=== PATIENT | female | born 2000 | race Caucasian/White ===

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

== ENCOUNTER 2018-03-29 14:57 | Emergency (ER) | payer OTHER ==
[2018-03-29 15:12] VITALS: BP 113/68; PULSE 102; TEMP 98.8; BMI 20.2
[2018-03-29] MEDS ORDERED: ACETAMINOPHEN 325 MG TABLET (FP) PO ONE (15:13)
--- NOTE | 2018-03-29 15:13 | PDOC ---
Rapid Medical Evaluation Time Seen by Provider: 03/29/18 15:09 Medical Evaluation: Allergies Allergy/AdvReac Type Severity Reaction Status Date / Time No Known Allergies Allergy Verified 12/20/17 12:59 03/29/18 15:09 Patient had a brief in-person assessment of this patient The patient presents with a chief complaint of: headache. Patient reports tripped and fell back hitting back of head on shelf. Reports no loc, no nausea or vomiting. States did not hit the floor. Denies blurred vision at present Pertinent physical findings are: NAD neck supple non tender mid cervical spine tenderness no lumps felt on scalp I have ordered the following: urine and analgesia ordered This patient will proceed to the ED for further evaluation.
[2018-03-29] MEDS ORDERED: ACETAMINOPHEN 325 MG TABLET (FP) ONE (15:43)
--- NOTE | 2018-03-29 15:53 | PDOC ---
History of Present Illness - General Chief Complaint: Injury Stated Complaint: FELL/BUMPT HEAD/HEADACHE Time Seen by Provider: 03/29/18 15:09 History Source: Patient Exam Limitations: No Limitations - History of Present Illness Initial Comments: 03/29/18 15:50 Patient states stumbled last night following and while trying to catch herself fell backwards striking her occiput on the edge of a shelf. Patient states was dazed at the time, however there was no LOC, no drainage from nose or ears, no other distracting injury. Since that time is felt mild dizziness but no vomiting or nausea, no significant hematoma or mass to neck or head, no numbness or tingling to hands or feet, and feels mental status has been within normal limits although felt tired. Is 5 months , therefore hesitant to take any medications for pain relief. Occurred: reports: yesterday Pain Location: reports: head Modifying Factors: improves with: None Loss of Consciousness: no loss of consciousness Associated Symptoms (Fall): dizziness, headache Past History - Travel Traveled outside of the country in the last 30 days: No Close contact w/someone who was outside of country & ill: No - Past Medical History Allergies/Adverse Reactions: Allergies Allergy/AdvReac Type Severity Reaction Status Date / Time No Known Allergies Allergy Verified 03/29/18 15:10 Home Medications: Ambulatory Orders Nitrofurantoin Monohyd/M-Cryst [Macrobid -] 100 mg PO BID #14 capsule 12/20/17 Anemia: Yes COPD: No - Reproductive History (#): 1 - Immunization History Immunization Up to Date: Yes - Suicide/Smoking/Psychosocial Hx Smoking History: Never smoked Review of Systems - Review of Systems Able to Perform ROS?: Yes Is the patient limited Tristanian proficient: Yes Constitutional: Yes: See HPI. No: Symptoms Reported, Chills, Fever HEENTM: Yes: See HPI. No: Symptoms Reported, Eye Pain, Blurred Vision, Tearing Respiratory: No: Symptoms reported Cardiac (ROS): No: Symptoms Reported Musculoskeletal: Yes: See HPI, Muscle Pain. No: Symptoms Reported Integumentary: Yes: See HPI. No: Symptoms Reported, Bruising Neurological: Yes: Symptoms reported, See HPI, Headache. No: Numbness, Paresthesia, Pre-Existing Deficit Psychiatric: No: Anxiety All Other Systems: Reviewed and Negative *Physical Exam - Vital Signs Last Vital Signs Temp Pulse Resp BP Pulse Ox 98.8 F 102 H 18 113/68 98 03/29/18 15:10 03/29/18 15:10 03/29/18 15:10 03/29/18 15:10 03/29/18 15:10 - Physical Exam General Appearance: Yes: Appropriately Dressed HEENT: positive: Normal ENT Inspection, TMs Normal (no hemotympanum, no drainage from nose or ears), Pharynx Normal, Other (no mass, hematoma, crepitus or step-offs to occiput. No obvious laceration or contusion noted to occiput at site of impact.). negative: Rhinorrhea, Sinus Tenderness Neck: positive: Supple (neck is supple without C-spine tenderness crepitus, has full range of motion with no muscle tenderness or spasm.). negative: Tender Respiratory/Chest: positive: Lungs Clear, Normal Breath Sounds Musculoskeletal: positive: Normal Inspection. negative: Muscle Spasm, Vertebral Tenderness Extremity: positive: Normal Capillary Refill, Normal Inspection, Normal Range of Motion Integumentary: positive: Normal Color, Dry, Warm Neurologic: positive: cook fry II-XII NML intact, Fully Oriented, Alert, Normal Mood/ Affect, Normal Response, Motor Strength / ED Treatment Course - ADDITIONAL ORDERS Additional order review: Laboratory Results 03/29/18 15:11 Urine HCG, Qual Positive - Medications Given in the ED: ED Medications Discontinued Medications Generic Name Dose Route Start Last Admin Trade Name Ervinq PRN Reason Stop Dose Admin Acetaminophen 650 mg 03/29/18 15:13 03/29/18 15:45 Tylenol - PO 03/29/18 15:14 650 mg ONCE ONE Administration Progress Note - Progress Note Progress Note: 7 with mild scalp contusion, mild concussive syndrome. Patient is therefore will use Tylenol only for mild pain relief and reviewed exercise limitations, and activity limitation until symptoms resolve *DC/Admit/Observation/Transfer Diagnosis at time of Disposition: Superficial injury of head Qualifiers: Encounter type: initial encounter Qualified Code(s): S00.90XA - Unspecified superficial injury of unspecified part of head, initial encounter - Referrals - Patient Instructions Printed Discharge Instructions: DI for Closed Head Injury Additional Instructions: Rest, avoid strenuous activity or exercise for the next 24-48 hours May use ice on contusions as needed. May use Tylenol for pain relief Watch and seek evaluation for changes in behavior including crankiness, inconsolability, quietness/ sleepiness that is inappropriate, tiredness that is inappropriate, watch for worsening and changes of behavior. Seek immediate evaluation/return to emergency department for vomiting, mental status changes, pain that's out of proportion , bloody drainage from ears or nose. Followup with private physician as needed in one to 2 days for reevaluation - Post Discharge Activity Forms/Work/School Notes: Back to Work
== END 2018-03-29 15:54 | disposition home or self-care (01) ==
LOC: JERFT 14:57
DX: S09.90XA Unspecified injury of head, initial encounter (principal); O26.892 Other specified pregnancy related conditions, second trimester; Z3A.00 Weeks of gestation of pregnancy not specified
CPT/HCPCS: 84703; 99281-25

== ENCOUNTER 2018-07-07 22:25 | Emergency (ER) | payer OTHER ==
[2018-07-07 22:31] VITALS: BMI 23.8
[2018-07-07] MEDS ORDERED: ACETAMINOPHEN 325 MG TABLET (FP) PO ONE (23:29)
--- NOTE | 2018-07-07 23:42 | PDOC ---
History of Present Illness - General Chief Complaint: Chest Pain Stated Complaint: 34 WEEKS/CHEST PAIN Time Seen by Provider: 07/07/18 23:11 History Source: Patient Exam Limitations: No Limitations - History of Present Illness Initial Comments: 07/07/18 23:28 17YOF who is about 34 weeks , who p/w left upper chest pain for the past hour and 15 minutes, mild but stabbing and radiating straight to her back, only when she takes a deep breath. Also feels like her left arm is a bit weaker than normal. She has not had this pain in the past, denies any diaphoresis, SOB (other than 2/2 exacerbated pain with deep breath), dysuria, vaginal bleeding/discharge, headache, neck pain, vision change, palpitations, lightheadedness, dizziness, leg pain/swelling, h/o blood clots (personal or family), prolonged immobilization, hemoptysis, etc. Did not take any medications for these symptoms. Past History - Past Medical History Allergies/Adverse Reactions: Allergies Allergy/AdvReac Type Severity Reaction Status Date / Time No Known Allergies Allergy Verified 07/07/18 22:31 Home Medications: Ambulatory Orders Cephalexin [Keflex Suspension] 500 mg PO BID #100 ml 07/08/18 118/Iron/Folate 6/Dha [[facility] Softgel] 1 each PO DAILY 07/08/18 Anemia: Yes COPD: No - Reproductive History (#): 1 - Immunization History Immunization Up to Date: Yes - Suicide/Smoking/Psychosocial Hx Smoking History: Never smoked Have you smoked in the past 12 months: No Information on smoking cessation initiated: No Hx Alcohol Use: No Drug/Substance Use Hx: No Review of Systems - Review of Systems Able to Perform ROS?: Yes Comments:: 07/07/18 23:30 GEN: no fever, chills, malaise, generalized weakness, or weight change HEENT: no ear pain, sore throat, vision change, or eye pain CV: chest pain, no palpitations, lightheadedness, syncope, or edema RESP: no cough, wheezing, or SOB GI: no abdominal pain, nausea, vomiting, diarrhea, constipation, or white/black/ bloody stool : no dysuria, hematuria, incontinence, retention, bleeding, or discharge MSK: no neck/back pain, muscle weakness/pain, or joint swelling/pain NEURO: LUE mild weakness, otherwise no headache, seizure, vertigo, numbness, tingling, or focal weakness PSYCH: no substance use, no behavior change SKIN: no jaundice, no rash ROS otherwise negative except as noted in HPI *Physical Exam - Vital Signs Last Vital Signs Temp Pulse Resp BP Pulse Ox 97.5 F L 76 18 131/80 99 07/08/18 02:08 07/08/18 02:08 07/08/18 02:08 07/08/18 02:08 07/07/18 22:29 07/07/18 23:40 GENERAL: very well-appearing young adult female, A/Ox4, no distress, answers questions appropriately HEENT: PERRLA, EOMI, moist mucous membranes NECK/BACK: no midline ttp, no spinal stepoff or deformity, no hematoma, full ROM , neck supple CHEST WALL: mildly tender to compression of LUCW which reproduces chief complaint exactly CARDIOVASCULAR: regular rate/rhythm, normal S1S2, no MGR, strong peripheral pulses, capillary refill <2 seconds, extremities wwp, no edema LUNGS/RESPIRATORY: no respiratory distress, CTAB GI/ABDOMEN: visibly gravid, symmetric [id number], normoactive BS, soft, no ttp , no midline pulsatile masses : no CVA tenderness EXTREMITIES: no muscle atrophy, no acute deformity, no edema, no calf tenderness or swelling SKIN: warm and dry, no pallor, no jaundice, no rash, no bruising, no skin breakdown, no cuts, no lesions NEUROLOGICAL: GCS 15, CN II-XII grossly intact, 5/5 strength proximally and distally, no facial droop Heart Score/ECG Review - History History: Slightly suspicious - Electrocardiogram EKG: Normal - Age Age: </= 45 - Risk Factors Based on the list above the patient has:: No risk factors known - Troponin Troponin: </= normal limit - Score Heart Score - Total: 0 #1 07/07/18 22:36 Sinus rhythm, sinus arrhythmia, rate 85, normal axis and intervals, no ischemic ST-T changes Moderate Sedation - Procedure Monitoring Vital Signs: Procedure Monitoring Vital Signs Temperature 97.5 F L 07/08/18 02:08 Pulse Rate 76 07/08/18 02:08 Respiratory Rate 18 07/08/18 02:08 Blood Pressure 131/80 07/08/18 02:08 O2 Sat by Pulse Oximetry (%) 99 07/07/18 22:29 ED Treatment Course - LABORATORY CBC & Chemistry Diagram: 07/08/18 00:05 07/08/18 00:05 - ADDITIONAL ORDERS Additional order review: Laboratory Results 07/08/18 07/08/18 07/08/18 00:05 00:05 00:05 Sodium 136 Potassium 4.0 Chloride 105 Carbon Dioxide 25 Anion Gap 5 L BUN 8 Creatinine 0.6 Creat Clearance w eGFR > 60 Random Glucose 102 Calcium 7.9 L Total Bilirubin 0.2 AST 21 ALT 12 L Alkaline Phosphatase 260 H Troponin I < 0.02 Total Protein 6.4 Albumin 2.7 L Urine Color Ltyellow Urine Appearance Clear Urine pH 7.0 Ur Specific [place] 1.012 Urine Protein Negative Urine Glucose (UA) Negative Urine Ketones Negative Urine Blood Negative Urine Nitrite Negative Urine Bilirubin Negative Urine Urobilinogen Negative Ur Leukocyte Esterase 3+ H Urine WBC (Auto) 18 Urine RBC (Auto) 1 Ur Epithelial Cells Few Urine Bacteria Rare Urine Mucus Rare 07/08/18 00:05 RBC 3.55 L MCV 94.2 MCHC 36.4 H RDW 13.8 D MPV 8.2 D Neutrophils % 64.4 Lymphocytes % 26.6 D Monocytes % 7.7 Eosinophils % 0.9 Basophils % 0.4 - Medications Given in the ED: ED Medications Discontinued Medications Generic Name Dose Route Start Last Admin Trade Name Freq PRN Reason Stop Dose Admin Acetaminophen 650 mg 07/07/18 23:29 07/08/18 00:27 Tylenol - PO 07/07/18 23:30 Not Given ONCE ONE Cephalexin 500 mg 07/08/18 01:11 07/08/18 01:41 Keflex Oral Suspension - PO 07/08/18 01:12 500 mg ONCE ONE Administration Cephalexin HCl 500 mg 07/08/18 00:51 07/08/18 01:22 Keflex - PO 07/08/18 00:52 Not Given ONCE ONE Dextrose/Lactated Ringer's 1,000 mls @ 500 mls/hr 07/08/18 03:00 07/08/18 03: 35 D5-Lr - IV 07/08/18 04:59 500 mls/hr ONCE ONE Administration Medical Decision Making - Medical Decision Making 07/07/18 23:43 34 wks adult female Pt p/w chest pain. Initial Vital Signs Temp Pulse Resp BP Pulse Ox 98.2 F 83 20 127/72 99 07/07/18 22:29 07/07/18 22:29 07/07/18 22:29 07/07/18 22:29 07/07/18 22:29 Exam: As noted in Physical Exam section. DDX IBNLT: most likely precordial catch, costochondritis, muscle strain/sprain; less likely any of the following: ACS, pericarditis, PE (PE considered given patient's although this is unlikely given normal vitals, lack of leg pain/swelling, lack of additional risk factors). Very unlikely any other more serious etiology e.g. PTX, PNA/bronchitis, pleurisy, pleuritis, MVP, panic/ anxiety, etc. W/U ordered: CBCD CMP Troponin UA UCx EKG TX ordered: Tylenol PO EKG: Reviewed; results as noted in ECG Review section. Laboratory Tests 07/08/18 07/08/18 07/08/18 00:05 00:05 00:05 WBC 6.5 RBC 3.55 L Hgb 12.2 Hct 33.4 MCV 94.2 MCH 34.3 H MCHC 36.4 H RDW 13.8 D Plt Count 237 MPV 8.2 D Absolute Neuts (auto) 4.2 Neutrophils % 64.4 Lymphocytes % 26.6 D Monocytes % 7.7 Eosinophils % 0.9 Basophils % 0.4 Nucleated RBC % 0 Sodium 136 Potassium 4.0 Chloride 105 Carbon Dioxide 25 Anion Gap 5 L BUN 8 Creatinine 0.6 Creat Clearance w eGFR > 60 Random Glucose 102 Calcium 7.9 L Total Bilirubin 0.2 AST 21 ALT 12 L Alkaline Phosphatase 260 H Troponin I Total Protein 6.4 Albumin 2.7 L Urine Color Ltyellow Urine Appearance Clear Urine pH 7.0 Ur Specific [place] 1.012 Urine Protein Negative Urine Glucose (UA) Negative Urine Ketones Negative Urine Blood Negative Urine Nitrite Negative Urine Bilirubin Negative Urine Urobilinogen Negative Ur Leukocyte Esterase 3+ H Urine WBC (Auto) 18 Urine RBC (Auto) 1 Ur Epithelial Cells Few Urine Bacteria Rare Urine Mucus Rare 07/08/18 00:05 WBC RBC Hgb Hct MCV MCH MCHC RDW Plt Count MPV Absolute Neuts (auto) Neutrophils % Lymphocytes % Monocytes % Eosinophils % Basophils % Nucleated RBC % Sodium Potassium Chloride Carbon Dioxide Anion Gap BUN Creatinine Creat Clearance w eGFR Random Glucose Calcium Total Bilirubin AST ALT Alkaline Phosphatase Troponin I < 0.02 Total Protein Albumin Urine Color Urine Appearance Urine pH Ur Specific [place] Urine Protein Urine Glucose (UA) Urine Ketones Urine Blood Urine Nitrite Urine Bilirubin Urine Urobilinogen Ur Leukocyte Esterase Urine WBC (Auto) Urine RBC (Auto) Ur Epithelial Cells Urine Bacteria Urine Mucus Reassessment: Patient states minimal/mild pain. States comfortable being discharged with plan to go to L&D for monitoring. Repeat exam benign. Vital Signs Temperature 97.5 F L 07/08/18 02:08 Pulse Rate 76 07/08/18 02:08 Respiratory Rate 18 07/08/18 02:08 Blood Pressure 131/80 07/08/18 02:08 O2 Sat by Pulse Oximetry (%) 99 07/07/18 22:29 DISCHARGE Repeat cardiac enzymes are negative. No new abnormal rhythms have been observed on the registered nurse cardiac. On last reassessment VS are stable, Pts pain is resolved, and exam is benign. The Pts HEART score indicates they are low risk and do not require admission currently. The Pt is appropriate for discharge with close outpatient follow up. They are comfortable with this plan and will follow up with their primary care provider in 1-3 days. Specific return precautions are discussed and they will come back to the ER if necessary. *DC/Admit/Observation/Transfer Diagnosis at time of Disposition: Chest pain Qualifiers: Chest pain type: chest pain on breathing Qualified Code(s): R07.1 - Chest pain on breathing UTI (urinary tract infection) Qualifiers: Urinary tract infection type: acute cystitis Hematuria presence: without hematuria Qualified Code(s): N30.00 - Acute cystitis without hematuria Qualifiers: Weeks of gestation: 34 weeks Qualified Code(s): Z3A.34 - 34 weeks gestation of - Discharge Dispostion Disposition: HOME Condition at time of disposition: Stable Decision to Admit order: No - Prescriptions Prescriptions: Cephalexin [Keflex Suspension] 500 mg PO BID #100 ml - Referrals Referrals: Gricel Coffey MD [Staff Physician] - - Patient Instructions Printed Discharge Instructions: Common Discomforts and Bodily Changes During , Managing Symptoms of , DI for Urinary Tract Infection (UTI) , DI for -- Discomforts and Remedies, DI for Chest Pain Additional Instructions: You were seen in the ER for chest pain. We did lab work on your blood and urine , and an electrocardiogram. You have a bladder infection, and we gave you a dose of antibiotic here. After our assessment, we do not believe you are having a medical emergency at this time, and we believe you are safe to go home. Take over the counter pain medications for your pain, as instructed on the medication label. Please follow up with your primary care provider in 1-3 days. Call their clinic as soon as possible, tell them you were seen in the ER, and tell them you need an appointment. If you have any new or worsening symptoms, especially worsening chest pain, jaw pain, shoulder/arm pain, shortness of breath, sweats, nausea, loss of consciousness, palpitations, or other symptoms, please come back to the ER at any time (24 hours a day). If you are having severe or life threatening symptoms, or symptoms that make it unsafe to drive or have someone drive you, please call 911. Please go up to L&D for monitoring. 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 Take the whole prescription course as directed on the label. DISCHARGE HOME. RESUME NORMAL ACTIVITY. EAT REGULARLY AND INCREASE YOUR WATER INTAKE. FOLLOW UP ON THURSDAY SCHEDULED IN THE OFFICE. TAKE ALL THE MEDICATION THE ED DOCTOR ORDERED. RETURN TO THE ED IF CHEST PAIN RETURNS. RETURN TO LABOR AND DELIVERY IF YOU START TO HAVE REGULAR CONTRACTIONS YOU BREAK YOUR WATER YOU HAVE ANY VAGINAL BLEEDING YOU DO NOT FEEL THE BABY MOVING - Post Discharge Activity
--- NOTE | 2018-07-07 23:50 | PDOC ---
Attending Attestation - HPI HPI: 07/07/18 23:51 The patient is a 17 year old female ( 34 weeks ) with no significant past medical history who presents to the emergency department with chest pain since about an hour ago. The patient states that she was at home when she felt an onset of her left sided upper chest pain. She states that her chest pain is worsened with deep breaths and radiates down her left arm which feels like a discomfort. She reports some associated nausea. The patient denies experiencing anything like this in the past. She denies any shortness of breath , numbness or tingling sensation. The patient reports that this is her first and denies any complications thus far. She states that she has had regular OB care. She denies any vaginal bleeding, discharge or urinary symptoms. She denies any significant extremity swelling. The patient denies any smoking alcohol intake or drug use. The patient denies any other complaints. She denies any fever, chills, vomiting, diarrhea or constipation she denies any other complaints. Documentation prepared by Dyan Ryder, acting as medical collections specialist for Damien Thompson MD. <Dyan Ryder - Last Filed: 07/07/18 23:51> - Resident Resident Name: Sidra Girard - ED Attending Attestation I have performed the following: I have examined & evaluated the patient, The case was reviewed & discussed with the resident, I agree w/resident's findings & plan, Exceptions are as noted - Physicial Exam PE: 07/08/18 02:07 Agree with exam as documented by resident Well appearing, NAD, AOx3, normal wob +ttp over chest wall, no rash, swelling, erythema LCTAB - Medical Decision Making 07/08/18 02:07 17F 34w preg here with chest pain, consider msk px, less likely acs, pe, pna f/u cp w/u if clear transfer to L&D <Damien Thompson - Last Filed: 07/08/18 02:08>
[2018-07-07] MEDS ORDERED: ACETAMINOPHEN 325 MG TABLET (FP) ONE (23:53)
[2018-07-08 00:16] LABS: BASO % 0.4 % (0-2.0); EOS % 0.9 % (0-4.5); HEMATOCRIT 33.4 % (32.4-45.2); HEMOGLOBIN 12.2 GM/dL (10.7-15.3); LYMPH % 26.6 % (8-40); MCH 34.3 pg (25.7-33.7); MCHC 36.4 g/dl (32.0-36.0); MEAN CELL VOLUME 94.2 fl (80-96); MEAN PLT VOLUME 8.2 fl (7.5-11.1); MONO % 7.7 % (3.8-10.2); NEUT % 64.4 % (42.8-82.8); PLATELET COUNT 237 K/MM3 (134-434); RBC 3.55 M/mm3 (3.60-5.2); RDW 13.8 % (11.6-15.6); WHITE BLOOD COUNT 6.5 K/mm3 (4.0-10.0)
[2018-07-08 00:18] LABS: URINE APPEARANCE CLEAR; URINE BILIRUBIN NEGATIVE (<2.0 mg/dL); URINE COLOR LTYELLOW; URINE GLUCOSE (UA) NEGATIVE (NEGATIVE); URINE KETONE NEGATIVE (NEGATIVE); URINE LEUK ESTERASE 3+ (NEGATIVE); URINE NITRITE NEGATIVE (NEGATIVE); URINE PROTEIN NEGATIVE (NEGATIVE); URINE UROBILINOGEN NEGATIVE mg/dL (0.2-1.0)
[2018-07-08 00:22] LABS: EPI CELLS FEW /HPF (FEW); URINE BACTERIA RARE /hpf (NONE SEEN); URINE MUCUS RARE
[2018-07-08 00:45] LABS: ALBUMIN 2.7 g/dl (3.4-5.0); ALK PHOS 260 U/L (45-117); ANION GAP 5 MMOL/L (8-16); BILIRUBIN,TOTAL 0.2 mg/dL (0.2-1); BLOOD UREA NITROGEN 8 mg/dL (7-18); CALCIUM 7.9 mg/dL (8.5-10.1); CHLORIDE 105 mmol/L (98-107); CO2 25 mmol/L (21-32); CREATININE 0.6 mg/dL (0.55-1.3); GLUCOSE,RANDOM 102 mg/dL (74-106); SGOT/AST 21 U/L (15-37); SGPT/ALT 12 U/L (13-61); SODIUM 136 mmol/L (136-145); TOT PROT 6.4 g/dl (6.4-8.2)
[2018-07-08] MEDS ORDERED: CEPHALEXIN MONOHYDRATE 500 MG CAPSULE (UD) PO ONE (00:51)
[2018-07-08] MEDS ORDERED: CEPHALEXIN MONOHYDRATE 500 MG CAPSULE (UD) ONE (01:04)
[2018-07-08] MEDS ORDERED: CEPHALEXIN MONOHYDRATE 250 MG CAPSULE (FP) ONE (01:07)
[2018-07-08] MEDS ORDERED: CEPHALEXIN 250 MG/5 ML ORAL SUSPENSION PO ONE (01:11)
[2018-07-08 02:15] VITALS: BP 131/80; PULSE 76; TEMP 97.5
[2018-07-08] MEDS ORDERED: DEXTROSE 5%-LACTATED RINGERS 1,000 ML IV ONE (03:00)
--- NOTE | 2018-07-08 12:11 | EKG ---
Test Reason : Blood Pressure : / mmHG Vent. Rate : 085 BPM Atrial Rate : 085 BPM P-R Int : 130 ms QRS Dur : 076 ms QT Int : 380 ms P-R-T Axes : 055 059 046 degrees QTc Int : 452 ms NORMAL SINUS RHYTHM WITH SINUS ARRHYTHMIA NORMAL ECG NO PREVIOUS ECGS AVAILABLE Confirmed by AMY SPEARS, JESUS ([id number]) on 07/08/2018 12:11:23 PM Referred By: Confirmed By:JESUS REYES MD
== END 2018-07-08 05:50 | disposition home or self-care (01) ==
LOC: JER 22:25
PROC: 3E0337Z Introduction of Electrolytic and Water Balance Substance into Peripheral Vein, Percutaneous Approach (ICD-10-PCS; principal; 2018-07-07)
DX: O26.891 Other specified pregnancy related conditions, first trimester (principal); O23.13 Infections of bladder in pregnancy, third trimester; N30.90 Cystitis, unspecified without hematuria; O99.89 Other specified diseases and conditions complicating pregnancy, childbirth and the puerperium; R07.1 Chest pain on breathing; Z3A.34 34 weeks gestation of pregnancy
CPT/HCPCS: 36415; 80053; 81003; 81015; 84484; 85025; 87086; 93005; 93010; 99282-25

== ENCOUNTER 2018-08-06 17:39 | Inpatient (IN) | payer OTHER ==
[2018-08-06 18:14] VITALS: BMI 25.2
[2018-08-06] MEDS ORDERED: DEXTROSE 5%-LACTATED RINGERS 1,000 ML IV SCH (18:15)
[2018-08-06] MEDS ORDERED: DINOPROSTONE 10 MG VAGINAL SUPPOSITORY VG ONE (19:30)
--- NOTE | 2018-08-06 19:37 | PN ---
Progress Note (short form) - Note Progress Note: cx 1 cm 50 vx -3 mr, nitrazine positive , fhr cat 1 , cervidil discussed , risks explained,cervidil inserted
[2018-08-06 20:41] LABS: BASO % 0.3 % (0-2.0); EOS % 0.3 % (0-4.5); HEMATOCRIT 35.3 % (32.4-45.2); HEMOGLOBIN 12.6 GM/dL (10.7-15.3); LYMPH % 19.4 % (8-40); MCH 34.3 pg (25.7-33.7); MCHC 35.6 g/dl (32.0-36.0); MEAN CELL VOLUME 96.3 fl (80-96); MONO % 5.8 % (3.8-10.2); NEUT % 74.2 % (42.8-82.8); PLATELET COUNT 213 K/MM3 (134-434); RBC 3.66 M/mm3 (3.60-5.2); RDW 14.1 % (11.6-15.6); WHITE BLOOD COUNT 8.7 K/mm3 (4.0-10.0)
[2018-08-06] MEDS ORDERED: AMPICILLIN SODIUM 2 GM VIAL ONE (20:59)
[2018-08-06] MEDS ORDERED: AMPICILLIN - 2 GM in SODIUM CHLORIDE 100 ML IVPB ONE (21:00)
[2018-08-06 21:01] LABS: ANION GAP 9 MMOL/L (8-16); BLOOD UREA NITROGEN 11 mg/dL (7-18); CALCIUM 7.9 mg/dL (8.5-10.1); CHLORIDE 108 mmol/L (98-107); CO2 22 mmol/L (21-32); CREATININE 0.6 mg/dL (0.55-1.3); GLUCOSE,RANDOM 86 mg/dL (74-106); POTASSIUM 3.9 mmol/L (3.5-5.1); SODIUM 139 mmol/L (136-145)
[2018-08-06 21:03] LABS: INR 0.96 (0.83-1.09); PROTHROMBIN TIME (PATIENT) 11.3 SEC (9.7-13.0)
[2018-08-06] MEDS ORDERED: PROMETHAZINE HCL 25 MG/1 ML VIAL IVPUSH ONE (21:11)
[2018-08-06] MEDS ORDERED: BUTORPHANOL TARTRATE 1 MG/ML VIAL IVPUSH ONE (21:11)
--- NOTE | 2018-08-06 21:20 | HP ---
Past Medical History - Primary Care Physician PCP:: Justin Valdez - Admission Chief Complaint: 39.6 weeks, prom History of Present Illness: 18 yo f g 2 p0 010, 39.6 weeks, c/o leakage clear fluid sine 3 am today on and off , mild contraction,since this afternoon , no fever, no bleeding , cx 1 cm 50 vx -3 mr, nitrazine positive , fhr cat 1, irregular contraction History Source: Patient Limitations to Obtaining History: No Limitations - Past Medical History ...: 2 ...Para: 0 ...Term: 0 ...: 0 ...Spon : 1 ...Induced : 0 ...Multiple Gestation: 0 ...LMP: 10/31/17 ... Weeks Gestation by Dates: 39.6 ...EDC by Dates: 08/07/18 ...EDC by Sono: 08/16/18 - Past Surgical History Hx Myomectomy: No Hx Transabdominal Cerclage: No - Smoking History Smoking history: Never smoked Have you smoked in the past 12 months: No - Alcohol/Substance Use Hx Alcohol Use: No - Social History History of Recent Travel: No Home Medications - Allergies Allergies/Adverse Reactions: Allergies Allergy/AdvReac Type Severity Reaction Status Date / Time No Known Allergies Allergy Verified 08/06/18 17:58 - Home Medications Home Medications: Ambulatory Orders Ferrous Sulfate [Feosol] 325 mg PO DAILY 08/06/18 Vitamins (Sjr) - 1 tab PO DAILY 08/06/18 Review of Systems - Review of Systems Constitutional: reports: No Symptoms Eyes: reports: No Symptoms HENT: reports: No Symptoms Neck: reports: No Symptoms Cardiovascular: reports: No Symptoms Respiratory: reports: No Symptoms Gastrointestinal: reports: No Symptoms Genitourinary: reports: No Symptoms Breasts: reports: No Symptoms Reported Musculoskeletal: reports: No Symptoms Integumentary: reports: No Symptoms Neurological: reports: No Symptoms Endocrine: reports: No Symptoms Hematology/Lymphatic: reports: No Symptoms Psychiatric: reports: No Symptoms Physical Exam - Maternity Vital Signs: Vital Signs Temperature 98.3 F 08/06/18 18:16 Pulse Rate 99 H 08/06/18 18:16 Respiratory Rate 20 08/06/18 18:16 Blood Pressure 138/82 08/06/18 18:16 O2 Sat by Pulse Oximetry (%) Constitutional: Yes: Well Nourished, No Distress, Calm Eyes: Yes: WNL, Conjunctiva Clear, EOM Intact HENT: Yes: WNL, Atraumatic, Normocephalic Neck: Yes: WNL, Supple, Trachea Midline Cardiovascular: Yes: WNL, Regular Rate and Rhythm Breast(s): Yes: WNL - Abdominal Exam/OB Fundal Height: 40 Number of Fetuses: Single Presentation: Vertex Regularity: Irregular Intensity: Unaware Monitor Mode: External Heart Rate Location: [facility] Category: I Accelerations: Uniform Decelerations: None - Vaginal Exam/OB Vaginal Bleediing: No Speculum Exam: Yes Dilatation (cm): 1 cm Effacement (%): 50 Amniotic Membrane Status: Ruptured Nitrazine Test: Positive Amniotic Fluid: Yes: Clear Presentation: Vertex/Position Station: -3 - Physical Exam Musculoskeletal: Yes: WNL Extremities: Yes: WNL Edema: LLE: Trace, RLE: Trace Deep Tendon Reflex Grade: Normal +2 - Labs Lab Results: CBC, BMP 08/06/18 19:30 08/06/18 19:30 Hemorrhage Risk Assessment - Risk Factors Medium Risk Factors: Yes: None High Risk Factors: Yes: None Risk Score: 1 Risk Level: Medium Risk Problem List - Problems (1) with 39 completed weeks gestation Code(s): Z3A.39 - 39 WEEKS GESTATION OF (2) PROM (premature rupture of membranes) Code(s): O42.90 - SHEMAR ROM, 7TH0 BETW RUPT & ONST LABR, UNSP WEEKS OF GEST Qualifiers: PROM onset of labor timing: onset of labor within 24 hours of rupture PROM gestational age: -third trimester Qualified Code(s): O42.013 - premature rupture of membranes, onset of labor within 24 hours of rupture, third trimester Assessment/Plan admit , gbs negative cervidil vs expectant management discussed , agreed to have cervidil risks explained FHM iv antibiotic for prolonged PROM pain management
[2018-08-07] MEDS ORDERED: AMPICILLIN SODIUM 1 GM VIAL ONE ×2 (00:46→00:52)
[2018-08-07] MEDS: AMPICILLIN - 1 GM in SODIUM CHLORIDE 100 ML IVPB SCH ×5 (01:00→20:46)
[2018-08-07] MEDS ORDERED: ONDANSETRON 4 MG/2 ML VIAL IVPB ONE (01:00)
[2018-08-07] MEDS ORDERED: ONDANSETRON 4 MG/2 ML VIAL ONE (01:07)
[2018-08-07] MEDS ORDERED: PROMETHAZINE HCL 25 MG/1 ML VIAL ONE (01:37)
[2018-08-07] MEDS ORDERED: BUTORPHANOL TARTRATE 1 MG/ML VIAL ONE ×2 (01:37)
[2018-08-07] MEDS ORDERED: OXYTOCIN 20 UNITS in 0.9% NS 20 UNIT/1,000 ML INFUS.BAG IV ONE ×3 (03:11→13:53)
[2018-08-07] MEDS ORDERED: LIDOCAINE HCL 1% PRESERVATIVE FREE - 30ML VIAL ONE (03:12)
[2018-08-07] MEDS ORDERED: BENZOCAINE 28 GM HEMORRHOIDAL OINTMENT TP PRN (03:54)
[2018-08-07] MEDS ORDERED: BISACODYL 10 MG SUPP.RECT RC PRN (03:54)
[2018-08-07] MEDS ORDERED: ACETAMINOPHEN 325 MG TABLET (FP) PO PRN (03:54)
[2018-08-07] MEDS ORDERED: METHYLERGONOVINE MALEATE 0.2 MG/1 ML AMP IM PRN (03:54)
[2018-08-07] MEDS ORDERED: WITCH HAZEL 50% (TUCKS) 40 PAD/JAR PAD TP PRN (03:54)
[2018-08-07] MEDS ORDERED: BENZOCAINE 20% 57 GM BOTTLE TP PRN (03:54)
[2018-08-07] MEDS ORDERED: IBUPROFEN 600 MG TABLET (FP) PO PRN (03:54)
--- NOTE | 2018-08-07 03:54 | PN ---
Progress Note (short form) - Note Progress Note: cx full 100 vx 3+,pushing, fhr cat 1 Problem List - Problems (1) with 39 completed weeks gestation Code(s): Z3A.39 - 39 WEEKS GESTATION OF (2) PROM (premature rupture of membranes) Code(s): O42.90 - SHEMAR ROM, 7TH0 BETW RUPT & ONST LABR, UNSP WEEKS OF GEST Qualifiers: PROM onset of labor timing: onset of labor within 24 hours of rupture PROM gestational age: -third trimester Qualified Code(s): O42.013 - premature rupture of membranes, onset of labor within 24 hours of rupture, third trimester
[2018-08-07] MEDS ORDERED: OXYTOCIN 20 UNITS in 0.9% NS 20 UNIT/1,000 ML INFUS.BAG IV SCH (04:00)
[2018-08-07] MEDS ORDERED: D5W-LR W/ 20 UNITS OXYTOCIN 1,000 ML IV SCH (04:00)
[2018-08-07] MEDS ORDERED: TUBERCULIN PPD 5 TU/0.1ML SYRINGE (IN PATIENT USE ONLY) ID ONE (09:30)
[2018-08-07] MEDS: FERROUS SO4 325 MG TABLET (FP) PO SCH ×2 (10:00→22:26)
[2018-08-07] MEDS: PRENATAL VITAMINS W/ FOLIC ACID TABLET (FP) PO SCH (10:00)
[2018-08-08 08:14] LABS: BASO % 0.3 % (0-2.0); HEMOGLOBIN 11.4 GM/dL (10.7-15.3); MCH 34.3 pg (25.7-33.7); MCHC 35.8 g/dl (32.0-36.0); MEAN CELL VOLUME 95.8 fl (80-96); MEAN PLT VOLUME 8.5 fl (7.5-11.1); MONO % 5.7 % (3.8-10.2); PLATELET COUNT 171 K/MM3 (134-434); RBC 3.34 M/mm3 (3.60-5.2)
--- NOTE | 2018-08-08 09:02 | PN ---
Progress Note (short form) - Note Progress Note: ppd1 doing well, no c/o ,voids ok abdomen soft, uterus firm, non tender lochia mild no calf tenderness plan ambulate , plan for d/c home in am Problem List - Problems (1) with 39 completed weeks gestation Code(s): Z3A.39 - 39 WEEKS GESTATION OF (2) PROM (premature rupture of membranes) Code(s): O42.90 - SHEMAR ROM, 7TH0 BETW RUPT & ONST LABR, UNSP WEEKS OF GEST Qualifiers: PROM onset of labor timing: onset of labor within 24 hours of rupture PROM gestational age: -third trimester Qualified Code(s): O42.013 - premature rupture of membranes, onset of labor within 24 hours of rupture, third trimester
[2018-08-08] MEDS: FERROUS SO4 325 MG TABLET (FP) PO SCH ×2 (09:42→21:03)
[2018-08-08] MEDS: PRENATAL VITAMINS W/ FOLIC ACID TABLET (FP) PO SCH (09:42)
[2018-08-08] MEDS ORDERED: DIPHTH,PERTUSS(ACELL),TET 0.5 ML DISP.SYRIN IM ONE (12:55)
[2018-08-08] MEDS ORDERED: FLU VACCINE QUAD 60 MCG/0.5 ML (MDV 18-19) IM ONE (12:58)
[2018-08-08] MEDS ORDERED: SENNOSIDES/DOCUSATE COMBO (SENNA PLUS) TABLET (UD) PO PRN (22:00)
--- NOTE | 2018-08-09 08:34 | DS ---
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: Vital Signs Temperature 98.5 F 08/08/18 22:00 Pulse Rate 70 08/08/18 22:00 Respiratory Rate 18 08/08/18 22:00 Blood Pressure 147/76 08/08/18 22:00 O2 Sat by Pulse Oximetry (%) 100 08/07/18 09:00 Constitutional: Yes: Well Nourished, No Distress, Calm Eyes: Yes: WNL, Conjunctiva Clear, EOM Intact HENT: Yes: WNL, Atraumatic, Normocephalic Neck: Yes: WNL, Supple, Trachea Midline Cardiovascular: Yes: WNL, Regular Rate and Rhythm Respiratory: Yes: WNL, Regular, CTA Bilaterally Gastrointestinal: Yes: WNL ...Rectal Exam: Yes: WNL Renal/: Yes: WNL External Genitalia: Yes: Normal ....Post : Yes: Uterus firm, Uterus non-tender, Slight lochia rubra Breast(s): Yes: WNL Musculoskeletal: Yes: WNL Extremities: Yes: WNL Edema: No Integumentary: Yes: WNL Neurological: Yes: WNL, Alert, Oriented ...Motor Strength: WNL Psychiatric: Yes: WNL, Alert, Oriented Labs: CBC, BMP 08/08/18 07:15 08/06/18 19:30 Delivery - Delivery Vaginal Delivery: Spontaneous (no complication) Type of Anesthesia: None Episiotomy/Laceration: None EBL (cc): 300 Delivery, Single - Stages of Labor Date 1st Stage Initiatied: 08/06/18 Time 1st Stage Initiated: 03:00 Date 2nd Stage Initiated: 08/07/18 Time 2nd Stage Initiated: 03:30 Date of Delivery: 08/07/18 Time of Delivery: 03:57 Time Placenta Delivered: 04:00 Placenta: Yes: Spontaneous - Condition of Infant 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: No Gender: Female Weight: 6 lb 7 oz Position: Left, OA Total Hours ROM (Hrs/Mins): 24h 57min - 1 Minute Total Score: 8 5 Minutes Total Score: 9 - [place] Feeding Plan Initial Plan: Elected not to breastfeed exclusively throughout hospitalization Discharge Summary Reason For Visit: LABOR Current Active Problems PROM (premature rupture of membranes) (Acute) with 39 completed weeks gestation (Acute) Procedures: Principal: Condition: Good - Instructions Diet, Activity, Other Instructions: regular diet, follow up [facility] care 4 weeks, if pain, fever, heavy vaginal bleeding call MD Referrals: Justin Valdez MD [Staff Physician] - Disposition: HOME - Home Medications Comprehensive Discharge Medication List: Ambulatory Orders Ferrous Sulfate [Feosol] 325 mg PO DAILY 08/06/18 Vitamins (Sjr) - 1 tab PO DAILY 08/06/18 Ibuprofen [Motrin -] 600 mg PO QID #28 tablet 08/08/18
[2018-08-09 08:48] VITALS: BP 113/64; PULSE 79; TEMP 98.3
[2018-08-09] MEDS: PRENATAL VITAMINS W/ FOLIC ACID TABLET (FP) PO SCH (09:44)
[2018-08-09] MEDS: FERROUS SO4 325 MG TABLET (FP) PO SCH (09:44)
== END 2018-08-09 12:50 | disposition home or self-care (01) | DRG 560 ==
LOC: JDEL 17:39 → JLDR 17:45 → J3W 08-07 16:06
PROVIDERS: ADMIT Obstetrics & Gynecology; ATTEND Obstetrics & Gynecology
PROC: 10E0XZZ Delivery of Products of Conception, External Approach (ICD-10-PCS; principal; 2018-08-06)
PROC: 3E0P7VZ Introduction of Hormone into Female Reproductive, Via Natural or Artificial Opening (ICD-10-PCS; 2018-08-06)
DX: O63.1 Prolonged second stage (of labor) (principal); Z3A.39 39 weeks gestation of pregnancy; Z37.0 Single live birth
CPT/HCPCS: 36415; 59409; 80048; 85025; 85610; 85730; 86593; 86850; 86900; 86901; 87389

== ENCOUNTER 2019-08-25 12:36 | Emergency (ER) | payer OTHER ==
[2019-08-25 12:58] VITALS: BP 108/58; PULSE 74; TEMP 97.9; BMI 20.9
--- NOTE | 2019-08-25 14:21 | PDOC ---
History of Present Illness - General Chief Complaint: Laceration Stated Complaint: LF HAND INJURY Time Seen by Provider: 08/25/19 13:46 History Source: Patient Exam Limitations: No Limitations Past History - Travel Traveled outside of the country in the last 30 days: No Close contact w/someone who was outside of country & ill: No - Past Medical History Allergies/Adverse Reactions: Allergies Allergy/AdvReac Type Severity Reaction Status Date / Time No Known Allergies Allergy Verified 08/25/19 12:55 Anemia: Yes Asthma: No Cancer: No Cardiac Disorders: No COPD: No Diabetes: No HTN: No Seizures: No Thyroid Disease: No - Reproductive History (#): 1 Para: 0 - Immunization History Immunization Up to Date: Yes - Psycho Social/Smoking Cessation Hx Smoking History: Never smoked Have you smoked in the past 12 months: No Hx Alcohol Use: No Drug/Substance Use Hx: No Hx Substance Use Treatment: No Review of Systems - Review of Systems Able to Perform ROS?: Yes Comments:: 08/25/19 15:30 CONSTITUTIONAL: Absent: fever, chills, diaphoresis, generalized weakness, malaise, loss of appetite HEENT: Absent: rhinorrhea, nasal congestion, throat pain, throat swelling, difficulty swallowing, mouth swelling, ear pain, eye pain, visual Changes MUSCULOSKELETAL: Absent: myalgia, arthralgia, joint swelling SKIN: Present: laceration Absent: rash, itching, pallor NEUROLOGIC: Absent: headache, focal weakness or paresthesias, dizziness, unsteady gait, seizure, mental status changes, bladder or bowel incontinence PSYCHIATRIC: Absent: anxiety, depression, suicidal or homicidal ideation, hallucinations. Is the patient limited Urdu proficient: No *Physical Exam - Vital Signs Last Vital Signs Temp Pulse Resp BP Pulse Ox 97.9 F 74 16 108/58 L 99 08/25/19 12:56 08/25/19 12:56 08/25/19 12:56 08/25/19 12:56 08/25/19 12:56 - Physical Exam 08/25/19 19:31 GENERAL: The patient is awake, alert, and fully oriented, in no acute distress. HEAD: Normal with no signs of trauma. EYES: Pupils equal, round and reactive to light, extraocular movements intact, sclera anicteric, conjunctiva clear. EXTREMITIES: Normal range of motion, no edema. NEUROLOGICAL: Normal speech, normal gait. PSYCH: Normal mood, normal affect. SKIN: 1cm laceration to the pad of the L 4th finger. Warm, Dry, normal turgor, no rashes or lesions noted. Procedures - Laceration/Wound Repair Left 4th digit Wound Length: to 2.5 cm Wound Explored: clean, no foreign body present Wound's Depth, Shape: superficial, linear Irrigated w/ Saline: Yes Betadine Prep: Yes Anesthesia: 1% Lidocaine Amount of Anesthetic (ccs): 3 (digital block) Wound Debrided: minimal Wound Repaired With: Sutures Suture Size/Type: 4:0 Number of Sutures: 2 (simple interrupted) Layer Closure: No Sterile Dressing Applied: Yes Medical Decision Making - Medical Decision Making 08/25/19 19:31 Patient is a 19-year-old female no past medical history who presents to the ER with a laceration to her left fourth finger. She states she works at [employer]. She was cutting chicken when she accidentally cut her left fourth finger. She states her tetanus is within the last 5 years and up-to-date. Denies numbness and tingling to the affected extremity. She states that it is still bleeding despite pressure. Patient is right-hand dominant. A/P: Laceration On exam patient with a 1 cm laceration to the pad of her left fourth finger. Tetanus UTD. Wound was cleaned under high pressure normal saline. No foreign bodies noted. Digital block placed 3 simple interrupted sutures placed with 4-0 nylon; see proceedure note DC home with wound care instructions and told to return in one week to have the stitches removed. I discussed the physical exam findings, ancillary test results and final diagnoses with the patient. I answered all of the patient's questions. The patient was satisfied with the care received and felt comfortable with the discharge plan and treatment plan. The Patient agrees to follow up with the primary care physician/specialist within 24-72 hours. Return precautions were given. Discharge - Discharge Information Problems reviewed: Yes Clinical Impression/Diagnosis: Laceration Condition: Stable Disposition: HOME - Admission No - Follow up/Referral Referrals: Melida Howell MD [Primary Care Provider] - - Patient Discharge Instructions Patient Printed Discharge Instructions: DI for Laceration Repair Additional Instructions: You had your cut fixed today with stitches. Please return in 7 days to have your stitches removed. Keep it clean and dry for 24 hours Avoid soaking the hand. Keep it dry when showering. Please keep the area clean and pat dry. You may use bacitracin once a day. You may take Tylenol or Motrin as needed for pain. Return to the emergency department sooner if you have area of redness around the site, purulent drainage, fevers, or have any changes in your symptoms. - Post Discharge Activity Work/Back to School Note: Back to Work
== END 2019-08-25 14:25 | disposition home or self-care (01) ==
LOC: JERFT 12:36
PROC: 0HQGXZZ Repair Left Hand Skin, External Approach (ICD-10-PCS; principal; 2019-08-25)
DX: S61.215A Laceration without foreign body of left ring finger without damage to nail, initial encounter (principal); W26.0XXA Contact with knife, initial encounter; Y93.G1 Activity, food preparation and clean up; Y92.511 Restaurant or cafe as the place of occurrence of the external cause; Y99.0 Civilian activity done for income or pay
CPT/HCPCS: 99283-25

== ENCOUNTER 2020-05-25 20:26 | Emergency (ER) | payer OTHER ==
[2020-05-25 20:37] VITALS: BP 122/77; PULSE 80; TEMP 98; BMI 21.7
[2020-05-25] MEDS ORDERED: FAMOTIDINE 20 MG/50 ML IVPB 20 MG/50 ML MG IVPB ONE ×2 (21:26→21:37)
[2020-05-25] MEDS ORDERED: MAG HYDROX/AL HYDROX/SIMETH 30 ML UNIT-DOSE CUP PO ONE (21:26)
[2020-05-25] MEDS ORDERED: ACETAMINOPHEN 500 MG TABLET (FP) PO ONE (21:26)
[2020-05-25] MEDS ORDERED: MAG HYDROX/AL HYDROX/SIMETH 30 ML UNIT-DOSE CUP ONE (21:37)
[2020-05-25] MEDS ORDERED: APIXABAN 2.5 MG TABLET ONE (21:37)
[2020-05-25] MEDS ORDERED: ACETAMINOPHEN 325 MG TABLET (FP) ONE (21:37)
[2020-05-25 22:06] LABS: BASO % 0.6 % (0-2.0); EOS % 1.9 % (0-4.5); HEMOGLOBIN 12.9 GM/dL (10.7-15.3); LYMPH % 42.7 % (8-40); MCH 31.9 pg (25.7-33.7); MEAN CELL VOLUME 93.8 fl (80-96); MEAN PLT VOLUME 7.7 fl (7.5-11.1); MONO % 8.1 % (3.8-10.2); NEUT % 46.7 % (42.8-82.8); PLATELET COUNT 240 K/MM3 (134-434); RBC 4.05 M/mm3 (3.60-5.2); RDW 12.9 % (11.6-15.6); WHITE BLOOD COUNT 5.7 K/mm3 (4.0-10.0)
[2020-05-25 22:22] LABS: POTASSIUM 4.4 mmol/L (3.5-5.1)
[2020-05-25 22:24] LABS: ALBUMIN 4.3 g/dl (3.4-5.0); BLOOD UREA NITROGEN 18.1 mg/dL (7-18); CALCIUM 8.7 mg/dL (8.5-10.1)
[2020-05-25 22:28] LABS: CREATININE 0.7 mg/dL (0.55-1.3)
[2020-05-25 22:29] LABS: BILIRUBIN,TOTAL 0.4 mg/dL (0.2-1); TOT PROT 7.9 g/dl (6.4-8.2)
[2020-05-25 22:34] LABS: EPI CELLS 25 /uL (0-25.1); HYALINE CASTS 1 /uL (0-3.1); URINE APPEARANCE CLEAR; URINE BACTERIA 640 /uL (0-1359); URINE BILIRUBIN NEGATIVE (NEGATIVE); URINE COLOR YELLOW; URINE GLUCOSE (UA) NEGATIVE (NEGATIVE); URINE KETONE NEGATIVE (NEGATIVE); URINE LEUK ESTERASE NEGATIVE (NEGATIVE); URINE NITRITE NEGATIVE (NEGATIVE); URINE PROTEIN NEGATIVE (NEGATIVE); URINE RBC 139 /uL (0-23.9); URINE WBC 5 /uL (0-25.8)
[2020-05-25 22:38] LABS: HCG,QUALITATIVE URINE Negative
== END 2020-05-25 23:20 | disposition home or self-care (01) ==
LOC: JER 20:26
PROC: 3E033NZ Introduction of Analgesics, Hypnotics, Sedatives into Peripheral Vein, Percutaneous Approach (ICD-10-PCS; principal; 2020-05-25)
DX: R10.9 Unspecified abdominal pain (principal)
CPT/HCPCS: 36415; 80053; 81003; 84703; 85025; 87086; 93005; 93010; 99285-25